=== PATIENT | female | born 1930 | race African-American/Black ===

== ENCOUNTER 2018-06-05 19:09 | Inpatient (IN) | payer MEDICARE, MEDICAID ==
--- NOTE | 2018-06-05 19:32 | ED Physician Chart ---
ED Chief Complaint/HPI - Patient Information Date Seen:: 06/05/18 Time Seen:: 19:28 Chief Complaint:: AGITATION AND SLAPPING HERESELF History of Present Illness:: 87 YR OLD FEMALE FROM [facility] WITH HX OF CVA DEMENTIA HYPERCHOLESTEROLISM HTN ANXIETY UTI AND HEART DZ Allergies:: Allergies Allergy/AdvReac Type Severity Reaction Status Date / Time Sulfa (Sulfonamide Allergy Verified 06/05/18 19:21 Antibiotics) ED Review of Systems - Review of Systems General/Constitutional: No fever Skin: No skin lesions Head: No headache Eyes: No loss of vision Neck: No neck pain Cardio Vascular: No chest pain GI: No nausea G/U: No dysuria Musculoskeletal: No bone or joint pain Endocrine: No polyuria Psychiatric: Prior psych history Hematopoietic: No bruising Allergic/Immuno: No urticaria Neurological: No syncope ED Past Medical History - Past Medical History Past Medical History: HTN, CAD, CVA/TIA, Dyslipidemia, Dementia, Other (PSYCH DISORDER) ED Physical Exam - Physical Examination Head: Atraumatic Skin: Nl inspection ENMT: External ears, nose nl Respiratory: Nl effort/Exclusion Cardio Vascular: RRR GI: No organomegaly Other Extremities comments:: RT SIDED WEAKNESS ED Assessment - Assessment General Assessment: PSYCHOSIS AGITATION REPETITIVE SLAPPING OF FACE ED Septic Shock - . Is Septic Shock (SBP<90, OR Lactate>4 mmol\L) present?: No ED Reassessment (Disposition) - Reassessment Reassessment:: AGITATION PSYCHOSIS DEMENTIA - Diagnosis Diagnosis:: ABOVE - Patient Disposition Discharge/Transfer:: Acute Care w/in this hosp Admitted to:: Med/Surg Condition at Disposition:: Stable
[2018-06-05 20:04] LABS: ALBUMIN 3.5 gm/dL (3.7-5.3); ALKALINE PHOSPHATASE 55 U/L (34-104); ANION GAP 13.3 (7.0-16.0); BILIRUBIN,TOTAL 0.3 mg/dL (0.3-1.0); BUN - UREA NITROGEN 18 mg/dL (7-25); CARBON DIOXIDE 23.7 mEq/L (21.0-31.0); CHLORIDE 109 mEq/L (98-107); CREATININE - SERUM 0.7 mg/dL (0.6-1.2); GLUCOSE 99 mg/dL (70-105); SGOT 12 U/L (13-39); SGPT/ALT 6 U/L (7-52); SODIUM SERUM 142 mEq/L (136-145)
[2018-06-05 20:14] LABS: % EOSINOPHILS 1.2 % (0.0-5.0); % LYMPHOCYTES 21.3 % (20.0-50.0); % MONOCYTES 5.1 % (2.0-10.0); % NEUTROPHILS 72.4 % (40.0-80.0); EOSINOPHILE ABSOLUTE 0.2 Th/cmm (0.1-0.4); HEMATOCRIT 35.1 % (41.0-60); HEMOGLOBIN 11.7 gm/dL (12-16); LYMPHOCYTE ABSOLUTE 2.7 Th/cmm (1.5-3.0); MEAN CELL VOLUME 88.5 fl (81-100); MEAN CORPUSCULAR HEMOGLOBIN 29.4 pg (27.0-31.0); MEAN CORPUSCULAR HGB CONC 33.2 pg (28.0-36.0); MEAN PLATELET VOLUME 11.4 fl; MONOCYTE ABSOLUTE 0.7 Th/cmm (0.3-1.0); NEUTROPHILE ABSOLUTE 9.2 Th/cmm (1.8-8.0); PLATELET COUNT 222 Th/cmm (150-400); RED BLOOD COUNT 3.97 Mil/cmm (3.80-5.20); RED CELL DISTRIBUTION WIDTH 12.5 % (11.5-20.0); WHITE BLOOD COUNT 12.8 Th/cmm (4.8-10.8)
[2018-06-05 21:36] VITALS: BP 138/96
[2018-06-05] MEDS ORDERED: Maalox 30 mL Cup PO PRN (21:39)
[2018-06-05] MEDS ORDERED: Magnesium Hydroxide (MOM) 30 mL UDC PO PRN (21:39)
[2018-06-05 22:36] LABS: CHOLESTEROL 161 mg/dL (<200); HDL -HIGH DENSITY LIPOPROTEIN 61 mg/dL (23-92); TRIGLYCERIDES 67 mg/dL (<150)
[2018-06-06] MEDS ORDERED: Multivitamin Tab PO SCH (09:00)
[2018-06-06] MEDS ORDERED: Non-Formulary Item 1 EA (Cranberry Fruit Concentrate [Cranberry] 450 MG) PO SCH (09:00)
[2018-06-06] MEDS ORDERED: NUTRITIONAL SUPPLEMENT PO SCH (09:00)
[2018-06-06] MEDS: Multivitamin Tab PO SCH (09:24)
--- NOTE | 2018-06-06 13:00 | History & Physical ---
ADMIT DATE: 06/06/2018 CHIEF COMPLAINT: Agitated behavior. HISTORY OF PRESENT ILLNESS: This is an 87-year-old female with history of hypertension, hypercholesterolemia and psych disorder, admitted from nursing facility secondary to above complaints, under the service of Dr. Connor. The patient denies chest pain, shortness of breath. The patient is not a good historian. PAST MEDICAL HISTORY: As mentioned in the history of present illness. PAST SURGICAL HISTORY: Unable to obtain from the patient. ALLERGIES: SULFA. MEDICATIONS: The patient is on Tylenol, Norvasc, aspirin, atorvastatin, Dulcolax, Colace, Ativan, multivitamins. ____. FAMILY HISTORY: Noncontributory. SOCIAL HISTORY: The patient is a detention patient requiring 24-hour total care. REVIEW OF SYSTEMS: This is limited secondary to the patient's current mental state. We will try to obtain more detailed review of systems at a later date by talking to family members Carlos Bishop, who is the at [phone] with a [place] address. There is a daughter, Pippa Swartz at [phone]. We will also try to get information from nursing staff at [facility] [phone]. PHYSICAL EXAMINATION: VITAL SIGNS: Blood pressure 138/96, respiration 20, pulse 92, temperature 97.7. GENERAL: Elderly female, appear chronically ill. NECK: Supple. LUNGS: Equal breath sounds with few rhonchi. HEART: Regular rate and rhythm with systolic ejection murmur. ABDOMEN: Soft, globular. EXTREMITIES: Positive excoriation. NEUROLOGIC: Limited. The patient with contracture in the right upper extremity. LABORATORY DATA: WBC 12.8, hemoglobin 11, platelets 222,000. Sodium 142, potassium 4.0, BUN 84, creatinine 0.7, AST and ALT 12 and ____ respectively. ASSESSMENT AND PLAN: History of stroke with right-sided generalized weakness, hypertension, hypercholesterolemia and psych disorder, leukocytosis, anemia, low albumin. Continue the patient also on aspirin. We will titrate the patient's antihypertensive medication. Continue multivitamins. We will monitor for any signs of infection. We will continue to monitor the patient closely with you. JOB# [id number]
--- NOTE | 2018-06-07 04:26 | Psychiatric Evaluation ---
DATE OF SERVICE: 06/05/2018 PSYCHIATRIC EVALUATION AND MENTAL STATUS EXAMINATION IDENTIFYING DATA: The patient is an 87-year-old woman, resident of [facility]. JUSTIFICATION TO HOSPITALIZATION: The patient is admitted here on a voluntary basis in view of her acute agitation and self-abusive behavior. HISTORY OF PRESENT ILLNESS: This is the first psychiatric hospitalization to [facility] for this patient who has been slapping across her face and would not be contained. The patient has to be given an Ativan 1 mg to calm her down. The patient, at the time of the evaluation, has been laughing and giggling and displaying acute mood swings. The patient is not making much sense at this time. The patient is still very paranoid and is resorted to self-abusive behaviors and staff have to intervene to stop her. The patient is also reported to have multiple medical problems with history of right-sided weakness due to CVA, dementia, hypertension, anxiety, UTI, and hyperlipidemia. The patient is, at this time, not presenting with any threats to harm others, but is noted to be self-abusive. The patient is not able to take care of her ADLs, she is a total care patient. PAST PSYCHIATRIC HISTORY: Details are not known. MEDICAL HISTORY: Physical examination is requested to be done by Dr. Mejia. SUBSTANCE ABUSE HISTORY: None. PHYSICAL OR SEXUAL ABUSE HISTORY: None. LEGAL PROBLEMS: None at this time. MENTAL STATUS EXAMINATION: The patient is an 87-year-old woman, looking her stated age, superficially cooperative. Eye contact is poor. Mood is noted to be irritable. Affect is constricted. The patient's insight and judgment at this time are noted to be still impaired. Impulse control seems to be poor. Coping skills are also noted to be poor. The patient at one minute, she is laughing and not making any sense, the next minute she has been slapping her face. PLAN: Because of her age, the patient is going to be initially started with a low dose of lorazepam and the patient is going to be observed. If this behavior continues, the patient is going to be started on low dose of mood stabilizer. JOB# [id number]
[2018-06-07] MEDS: Multivitamin Tab PO SCH (09:52)
--- NOTE | 2018-06-07 12:27 | Internal Medicine Prog Note ---
Internal Medicine Subjective - Subjective Patient seen and examined:: with staff, chart reviewed Patient is:: asleep, eyes closed, arousable, in bed, confused Per staff patient has:: no adverse event, no episodes of fall, poor appetite, agitated Internal Medicine Objective - Results Result Diagrams: 06/05/18 19:45 06/05/18 19:45 Recent Labs: Laboratory Last Values WBC 12.8 Th/cmm (4.8-10.8) H 06/05/18 19:45 RBC 3.97 Mil/cmm (3.80-5.20) 06/05/18 19:45 Hgb 11.7 gm/dL (12-16) L 06/05/18 19:45 Hct 35.1 % (41.0-60) L 06/05/18 19:45 MCV 88.5 fl (81-100) 06/05/18 19:45 MCH 29.4 pg (27.0-31.0) 06/05/18 19:45 MCHC Differential 33.2 pg (28.0-36.0) 06/05/18 19:45 RDW 12.5 % (11.5-20.0) 06/05/18 19:45 Plt Count 222 Th/cmm (150-400) 06/05/18 19:45 MPV 11.4 fl 06/05/18 19:45 Neutrophils % 72.4 % (40.0-80.0) 06/05/18 19:45 Lymphocytes % 21.3 % (20.0-50.0) 06/05/18 19:45 Monocytes % 5.1 % (2.0-10.0) 06/05/18 19:45 Eosinophils % 1.2 % (0.0-5.0) 06/05/18 19:45 Basophils % 0.0 % (0.0-2.0) 06/05/18 19:45 Sodium 142 mEq/L (136-145) 06/05/18 19:45 Potassium 4.0 mEq/L (3.5-5.1) 06/05/18 19:45 Chloride 109 mEq/L (98-107) H 06/05/18 19:45 Carbon Dioxide 23.7 mEq/L (21.0-31.0) 06/05/18 19:45 Anion Gap 13.3 (7.0-16.0) 06/05/18 19:45 BUN 18 mg/dL (7-25) 06/05/18 19:45 Creatinine 0.7 mg/dL (0.6-1.2) 06/05/18 19:45 Est GFR ( Amer) TNP 06/05/18 19:45 Est GFR (Non-Af Amer) TNP 06/05/18 19:45 BUN/Creatinine Ratio 25.7 06/05/18 19:45 Glucose 99 mg/dL (70-105) 06/05/18 19:45 Calcium 9.0 mg/dL (8.6-10.3) 06/05/18 19:45 Total Bilirubin 0.3 mg/dL (0.3-1.0) 06/05/18 19:45 AST 12 U/L (13-39) L 06/05/18 19:45 ALT 6 U/L (7-52) L 06/05/18 19:45 Alkaline Phosphatase 55 U/L (34-104) 06/05/18 19:45 Total Protein 7.0 gm/dL (6.0-8.3) 06/05/18 19:45 Albumin 3.5 gm/dL (3.7-5.3) L 06/05/18 19:45 Globulin 3.5 gm/dL 06/05/18 19:45 Albumin/Globulin Ratio 1.0 (1.0-1.8) 06/05/18 19:45 Triglycerides 67 mg/dL (<150) 06/05/18 19:35 Cholesterol 161 mg/dL (<200) 06/05/18 19:35 LDL Cholesterol Direct 80 mg/dL (75-193) 06/05/18 19:35 HDL Cholesterol 61 mg/dL (23-92) 06/05/18 19:35 - Physical Exam Vitals and I&O: Vital Signs Temp 98.3 F 06/06/18 20:18 Pulse 90 06/07/18 09:50 Resp 18 06/06/18 20:18 BP 115/73 06/07/18 09:50 Pulse Ox 96 06/06/18 20:18 Intake & Output 06/06/18 06/07/18 06/07/18 18:59 06:59 18:59 Intake Total 120 Balance 120 Intake: Oral 120 Other: # Voids 2 # Bowel Movements 0 Active Medications: Current Medications Acetaminophen (Tylenol) 325 mg PO Q6HR PRN PRN Reason: Pain or Fever >101 Stop: 08/04/18 21:43 Al Hydrox/Mg Hydrox/Simethicone (Maalox) 30 ml PO Q4HR PRN PRN Reason: GI DISTRESS Stop: 08/04/18 21:38 Amlodipine Besylate (Norvasc) 5 mg PO DAILY TOÑITO Stop: 08/05/18 08:59 Last Admin: 06/07/18 09:50 Dose: 5 mg Aspirin (Ecotrin) 81 mg PO DAILY TOÑITO Stop: 08/05/18 08:59 Last Admin: 06/07/18 09:51 Dose: 81 mg Atorvastatin Calcium (Lipitor) 40 mg PO HS [facility] Stop: 08/04/18 22:59 Last Admin: 06/06/18 20:45 Dose: 40 mg Bisacodyl (Dulcolax 10 Mg Supp) 10 mg RC DAILY PRN PRN Reason: Constipation Stop: 08/04/18 21:43 Docusate Sodium (Colace) 100 mg PO BID [facility] Stop: 08/05/18 08:59 Last Admin: 06/07/18 09:51 Dose: Not Given Lorazepam (Ativan) 0.5 mg PO Q6HR PRN; Protocol PRN Reason: Anxiety Stop: 08/04/18 21:43 Magnesium Hydroxide (Milk Of Magnesia) 30 ml PO HS PRN PRN Reason: Constipation Multivitamins/Vitamin C (Theragran) 1 tab PO DAILY TOÑITO Stop: 08/05/18 08:59 Last Admin: 06/07/18 09:52 Dose: 1 tab Zolpidem Tartrate (Ambien) 5 mg PO HS PRN PRN Reason: Insomnia Stop: 08/04/18 21:38 Last Admin: 06/06/18 20:46 Dose: 5 mg General: weak HEENT: NC/AT, PERRLA, EOMI Neck: Supple, No JVD Lungs: rales Cardiovascular: RRR, Normal S1, Normal S2, with murmur Abdomen: soft, non-tender, non-distended, positive bowel sound Extremities: excoriation, contracture Neurological: no change Internal Medicine Assmt/Plan - Assessment Assessment: ASSESSMENT : History of stroke with right-sided generalized weakness, hypertension, hypercholesterolemia and psych disorder, leukocytosis, anemia, low albumin. - Plan Plan: PLAN: Continue the patient also on aspirin. We will titrate the patient's antihypertensive medication. Continue multivitamins. We will monitor for any signs of infection. We will continue to monitor the patient closely with you.
--- NOTE | 2018-06-08 04:42 | Consultation ---
DATE OF CONSULTATION: 06/07/2018 REFERRING PHYSICIAN: Pratik Clemons M.D. TYPE OF CONSULTATION: Psychology. HISTORY OF PRESENT ILLNESS: The patient is an 87-year-old female. The patient is a resident of [facility]. The patient is being admitted due to acute agitation and self-abusive behavior. The following is by review of the medical record and by the patient's self- report. The staff at the patient's facility report that the patient was displaying acute mood swings. This included laughing inappropriately and then resorting to self-abusive behaviors which was the patient slapping herself in her face. Staff was unable to intervene and to deescalate her, therefore, the patient was referred here due to her decompensation and for stabilization. The staff also reports that the patient is a total care patient. The patient did not answer the question about experiencing suicidal ideation, plan, or intention. PAST MEDICAL HISTORY: Please see history and physical by Dr. Mejia. PAST PSYCHIATRIC HISTORY: Records are unavailable. Details are unknown. SUBSTANCE ABUSE HISTORY: The patient denied any history of alcohol, tobacco, or illicit drug use. PSYCHOSOCIAL HISTORY: The patient did not answer questions about educational or occupational history. The patient states that she is and that she has a daughter named Pippa and her 's name is Carlos who resides in [place]. The patient states that her daughter is involved in her care and that she is estranged from her . The patient did not endorse any specific christianity affiliation. The patient denied any history of physical or sexual abuse. She did not know if there were any current legal problems. MENTAL STATUS EXAMINATION: The patient appears to be older than her stated age. The patient's attitude is superficially cooperative. Eye contact is poor. Speech is slow, delayed, rambling and difficult to comprehend. Mood is irritable. Affect is constricted. Thought process shows to be confused. The patient is not making much sense. There are apparent mood fluctuations which include laughing inappropriately to appearing to be sullen and irritated. The patient did not answer questions about experiencing auditory or visual hallucinations or delusions. The patient did not answer the inquiry about having any suicidal ideation, plan or intention. The patient's behavior includes repeated attempts to slap herself in her face. This also occurred during the initial interview. Impulse control is impaired. Concentration is poor. Sensorium is alert and oriented to self only. The patient did not participate in the memory assessment. She did not participate in the interpretation of proverbs. The patient was unable to verbally contract for safety. Insight is impaired. Judgment is impaired. DIAGNOSTIC IMPRESSION: AXIS I: 1. Provisional diagnosis of dementia due to other medical condition by history. 2. Impulse control disorder, not otherwise specified. 3. Provisional diagnosis of psychotic disorder, not otherwise specified. 4. Provisional diagnosis of anxiety disorder, not otherwise specified. AXIS II: Deferred. AXIS III: Per Dr. Mejia. TREATMENT PLAN: The patient has been seen by Dr. Clemons for psychiatric evaluation and for the management of the patient's psychotropic medications. Records indicate the patient may be given Ativan to help calm her. We will provide de-escalation as well as limit setting. We will provide cognitive redirection including thought-stopping to prevent self abusive behavior. We will provide stress management for the patient to increase her frustration tolerance. We will provide a simple anxiety reduction skill. We will provide motivational enhancement for the patient to become compliant and stay compliant with all aspects of her care and treatment and to assist the patient in being able to follow through with staff direction. We will encourage the patient to verbally contract for safety including no self-harm. We will provide coping strategies for phase of life issues. A possible Neurology consult may be considered. We will followup with Behavioral therapy and supportive psychotherapy during the patient's hospital stay and course of treatment. Thank you, Dr. Clemons, for this consult and the opportunity to participate in this patient's care. JOB# [id number] [place]
--- NOTE | 2018-06-08 05:38 | Progress Notes ---
DATE: 06/07/2018 PSYCHIATRIC PROGRESS NOTE SUBJECTIVE: Staff was spoken to. The patient is interviewed. Mood is noted to be dysphoric. The patient's coping skills are noted to be very poor. The patient is laughing and giggling at times and is not making much of any sense. The patient has been currently on lorazepam on an as needed basis. The patient is gravely disabled and short and long-term memory are not be a major concern. The patient is being closely monitored for and has been provided with the supportive therapy. The patient is encouraged to verbalize the concerns. ASSESSMENT: The patient is still demented and getting paranoid. PLAN: To consider low dose of the Seroquel and the patient's family is going to be informed before the antipsychotic medication is going to be started. JOB# [id number]
[2018-06-08] MEDS: Multivitamin Tab PO SCH (09:16)
--- NOTE | 2018-06-08 12:00 | Internal Medicine Prog Note ---
Internal Medicine Subjective - Subjective Patient seen and examined:: with staff, chart reviewed Patient is:: asleep, eyes closed, arousable, in bed, confused Per staff patient has:: no adverse event, no episodes of fall, poor appetite, agitated Internal Medicine Objective - Results Result Diagrams: 06/05/18 19:45 06/05/18 19:45 Recent Labs: Laboratory Last Values WBC 12.8 Th/cmm (4.8-10.8) H 06/05/18 19:45 RBC 3.97 Mil/cmm (3.80-5.20) 06/05/18 19:45 Hgb 11.7 gm/dL (12-16) L 06/05/18 19:45 Hct 35.1 % (41.0-60) L 06/05/18 19:45 MCV 88.5 fl (81-100) 06/05/18 19:45 MCH 29.4 pg (27.0-31.0) 06/05/18 19:45 MCHC Differential 33.2 pg (28.0-36.0) 06/05/18 19:45 RDW 12.5 % (11.5-20.0) 06/05/18 19:45 Plt Count 222 Th/cmm (150-400) 06/05/18 19:45 MPV 11.4 fl 06/05/18 19:45 Neutrophils % 72.4 % (40.0-80.0) 06/05/18 19:45 Lymphocytes % 21.3 % (20.0-50.0) 06/05/18 19:45 Monocytes % 5.1 % (2.0-10.0) 06/05/18 19:45 Eosinophils % 1.2 % (0.0-5.0) 06/05/18 19:45 Basophils % 0.0 % (0.0-2.0) 06/05/18 19:45 Sodium 142 mEq/L (136-145) 06/05/18 19:45 Potassium 4.0 mEq/L (3.5-5.1) 06/05/18 19:45 Chloride 109 mEq/L (98-107) H 06/05/18 19:45 Carbon Dioxide 23.7 mEq/L (21.0-31.0) 06/05/18 19:45 Anion Gap 13.3 (7.0-16.0) 06/05/18 19:45 BUN 18 mg/dL (7-25) 06/05/18 19:45 Creatinine 0.7 mg/dL (0.6-1.2) 06/05/18 19:45 Est GFR ( Amer) TNP 06/05/18 19:45 Est GFR (Non-Af Amer) TNP 06/05/18 19:45 BUN/Creatinine Ratio 25.7 06/05/18 19:45 Glucose 99 mg/dL (70-105) 06/05/18 19:45 Calcium 9.0 mg/dL (8.6-10.3) 06/05/18 19:45 Total Bilirubin 0.3 mg/dL (0.3-1.0) 06/05/18 19:45 AST 12 U/L (13-39) L 06/05/18 19:45 ALT 6 U/L (7-52) L 06/05/18 19:45 Alkaline Phosphatase 55 U/L (34-104) 06/05/18 19:45 Total Protein 7.0 gm/dL (6.0-8.3) 06/05/18 19:45 Albumin 3.5 gm/dL (3.7-5.3) L 06/05/18 19:45 Globulin 3.5 gm/dL 06/05/18 19:45 Albumin/Globulin Ratio 1.0 (1.0-1.8) 06/05/18 19:45 Triglycerides 67 mg/dL (<150) 06/05/18 19:35 Cholesterol 161 mg/dL (<200) 06/05/18 19:35 LDL Cholesterol Direct 80 mg/dL (75-193) 06/05/18 19:35 HDL Cholesterol 61 mg/dL (23-92) 06/05/18 19:35 - Physical Exam Vitals and I&O: Vital Signs Temp 97.4 F 06/08/18 06:22 Pulse 76 06/08/18 09:16 Resp 18 06/08/18 08:00 BP 130/76 06/08/18 09:16 Pulse Ox 97 06/08/18 06:22 Intake & Output 06/07/18 06/08/18 06/08/18 18:59 06:59 18:59 Intake Total 120 Balance 120 Intake: Oral 120 Other: # Voids 3 Active Medications: Current Medications Acetaminophen (Tylenol) 325 mg PO Q6HR PRN PRN Reason: Pain or Fever >101 Stop: 08/04/18 21:43 Al Hydrox/Mg Hydrox/Simethicone (Maalox) 30 ml PO Q4HR PRN PRN Reason: GI DISTRESS Stop: 08/04/18 21:38 Amlodipine Besylate (Norvasc) 5 mg PO DAILY [facility] Stop: 08/05/18 08:59 Last Admin: 06/08/18 09:16 Dose: 5 mg Aspirin (Ecotrin) 81 mg PO DAILY [facility] Stop: 08/05/18 08:59 Last Admin: 06/08/18 09:16 Dose: 81 mg Atorvastatin Calcium (Lipitor) 40 mg PO HS [facility] Stop: 08/04/18 22:59 Last Admin: 06/07/18 20:58 Dose: Not Given Bisacodyl (Dulcolax 10 Mg Supp) 10 mg RC DAILY PRN PRN Reason: Constipation Stop: 08/04/18 21:43 Docusate Sodium (Colace) 100 mg PO BID [facility] Stop: 08/05/18 08:59 Last Admin: 06/08/18 09:16 Dose: 100 mg Lorazepam (Ativan) 0.5 mg PO Q6HR PRN; Protocol PRN Reason: Anxiety Stop: 08/04/18 21:43 Magnesium Hydroxide (Milk Of Magnesia) 30 ml PO HS PRN PRN Reason: Constipation Multivitamins/Vitamin C (Theragran) 1 tab PO DAILY [facility] Stop: 08/05/18 08:59 Last Admin: 06/08/18 09:16 Dose: 1 tab Zolpidem Tartrate (Ambien) 5 mg PO HS PRN PRN Reason: Insomnia Stop: 08/04/18 21:38 Last Admin: 06/06/18 20:46 Dose: 5 mg General: weak HEENT: NC/AT, PERRLA, EOMI Neck: Supple, No JVD Lungs: rales Cardiovascular: RRR, Normal S1, Normal S2, with murmur Abdomen: soft, non-tender, non-distended, positive bowel sound Extremities: excoriation, contracture Neurological: no change Internal Medicine Assmt/Plan - Assessment Assessment: ASSESSMENT : History of stroke with right-sided generalized weakness, hypertension, hypercholesterolemia and psych disorder, leukocytosis, anemia, low albumin. - Plan Plan: PLAN: Continue the patient also on aspirin. We will titrate the patient's antihypertensive medication. Continue multivitamins. We will monitor for any signs of infection. We will continue to monitor the patient closely with you.
--- NOTE | 2018-06-09 01:42 | Progress Notes ---
DATE: 06/08/2018 PSYCHIATRIC PROGRESS NOTE SUBJECTIVE: Staff was spoken to. The patient is interviewed. Mood is noted to be irritable. Affect is constricted. The patient's insight and judgment are noted to be still impaired. The patient is self-abusive. The patient is demented. Coping skills at this time are noted to be extremely poor. ASSESSMENT: The patient is still paranoid and has been self-abusive. PLAN: To continue the patient with the current medication and encouraged the patient to verbalize the concerns rather than to act out. [facility]# [id number]
[2018-06-09] MEDS: Multivitamin Tab PO SCH (08:51)
--- NOTE | 2018-06-09 12:40 | Internal Medicine Prog Note ---
Internal Medicine Subjective - Subjective Patient seen and examined:: with staff, chart reviewed Patient is:: asleep, eyes closed, arousable, in bed, confused Per staff patient has:: no adverse event, no episodes of fall, poor appetite, agitated Internal Medicine Objective - Results Result Diagrams: 06/05/18 19:45 06/05/18 19:45 Recent Labs: Laboratory Last Values WBC 12.8 Th/cmm (4.8-10.8) H 06/05/18 19:45 RBC 3.97 Mil/cmm (3.80-5.20) 06/05/18 19:45 Hgb 11.7 gm/dL (12-16) L 06/05/18 19:45 Hct 35.1 % (41.0-60) L 06/05/18 19:45 MCV 88.5 fl (81-100) 06/05/18 19:45 MCH 29.4 pg (27.0-31.0) 06/05/18 19:45 MCHC Differential 33.2 pg (28.0-36.0) 06/05/18 19:45 RDW 12.5 % (11.5-20.0) 06/05/18 19:45 Plt Count 222 Th/cmm (150-400) 06/05/18 19:45 MPV 11.4 fl 06/05/18 19:45 Neutrophils % 72.4 % (40.0-80.0) 06/05/18 19:45 Lymphocytes % 21.3 % (20.0-50.0) 06/05/18 19:45 Monocytes % 5.1 % (2.0-10.0) 06/05/18 19:45 Eosinophils % 1.2 % (0.0-5.0) 06/05/18 19:45 Basophils % 0.0 % (0.0-2.0) 06/05/18 19:45 Sodium 142 mEq/L (136-145) 06/05/18 19:45 Potassium 4.0 mEq/L (3.5-5.1) 06/05/18 19:45 Chloride 109 mEq/L (98-107) H 06/05/18 19:45 Carbon Dioxide 23.7 mEq/L (21.0-31.0) 06/05/18 19:45 Anion Gap 13.3 (7.0-16.0) 06/05/18 19:45 BUN 18 mg/dL (7-25) 06/05/18 19:45 Creatinine 0.7 mg/dL (0.6-1.2) 06/05/18 19:45 Est GFR ( Amer) TNP 06/05/18 19:45 Est GFR (Non-Af Amer) TNP 06/05/18 19:45 BUN/Creatinine Ratio 25.7 06/05/18 19:45 Glucose 99 mg/dL (70-105) 06/05/18 19:45 Calcium 9.0 mg/dL (8.6-10.3) 06/05/18 19:45 Total Bilirubin 0.3 mg/dL (0.3-1.0) 06/05/18 19:45 AST 12 U/L (13-39) L 06/05/18 19:45 ALT 6 U/L (7-52) L 06/05/18 19:45 Alkaline Phosphatase 55 U/L (34-104) 06/05/18 19:45 Total Protein 7.0 gm/dL (6.0-8.3) 06/05/18 19:45 Albumin 3.5 gm/dL (3.7-5.3) L 06/05/18 19:45 Globulin 3.5 gm/dL 06/05/18 19:45 Albumin/Globulin Ratio 1.0 (1.0-1.8) 06/05/18 19:45 Triglycerides 67 mg/dL (<150) 06/05/18 19:35 Cholesterol 161 mg/dL (<200) 06/05/18 19:35 LDL Cholesterol Direct 80 mg/dL (75-193) 06/05/18 19:35 HDL Cholesterol 61 mg/dL (23-92) 06/05/18 19:35 - Physical Exam Vitals and I&O: Vital Signs Temp 97.4 F 06/09/18 06:48 Pulse 84 06/09/18 06:48 Resp 19 06/09/18 06:48 BP 128/69 06/09/18 06:48 Pulse Ox 94 06/09/18 06:48 Intake & Output 06/08/18 06/09/18 06/09/18 18:59 06:59 18:59 Intake Total 960 120 Output Total 1 Balance 960 119 Intake: Oral 960 120 Output: Urine/Stool Mix 1 Other: # Voids 2 1 # Bowel Movements 0 Active Medications: Current Medications Acetaminophen (Tylenol) 325 mg PO Q6HR PRN PRN Reason: Pain or Fever >101 Stop: 08/04/18 21:43 Al Hydrox/Mg Hydrox/Simethicone (Maalox) 30 ml PO Q4HR PRN PRN Reason: GI DISTRESS Stop: 08/04/18 21:38 Amlodipine Besylate (Norvasc) 5 mg PO DAILY [facility] Stop: 08/05/18 08:59 Last Admin: 06/09/18 08:51 Dose: Not Given Aspirin (Ecotrin) 81 mg PO DAILY [facility] Stop: 08/05/18 08:59 Last Admin: 06/09/18 08:51 Dose: 81 mg Atorvastatin Calcium (Lipitor) 40 mg PO HS [facility] Stop: 08/04/18 22:59 Last Admin: 06/08/18 21:17 Dose: 40 mg Bisacodyl (Dulcolax 10 Mg Supp) 10 mg RC DAILY PRN PRN Reason: Constipation Stop: 08/04/18 21:43 Docusate Sodium (Colace) 100 mg PO BID [facility] Stop: 08/05/18 08:59 Last Admin: 06/09/18 08:50 Dose: 100 mg Lorazepam (Ativan) 0.5 mg PO Q6HR PRN; Protocol PRN Reason: Anxiety Stop: 08/04/18 21:43 Magnesium Hydroxide (Milk Of Magnesia) 30 ml PO HS PRN PRN Reason: Constipation Multivitamins/Vitamin C (Theragran) 1 tab PO DAILY [facility] Stop: 08/05/18 08:59 Last Admin: 06/09/18 08:51 Dose: 1 tab Zolpidem Tartrate (Ambien) 5 mg PO HS PRN PRN Reason: Insomnia Stop: 08/04/18 21:38 Last Admin: 06/08/18 21:16 Dose: 5 mg General: weak HEENT: NC/AT, PERRLA, EOMI Neck: Supple, No JVD Lungs: rales Cardiovascular: RRR, Normal S1, Normal S2, with murmur Abdomen: soft, non-tender, non-distended, positive bowel sound Extremities: excoriation, contracture Neurological: no change Internal Medicine Assmt/Plan - Assessment Assessment: ASSESSMENT : History of stroke with right-sided generalized weakness, hypertension, hypercholesterolemia and psych disorder, leukocytosis, anemia, low albumin. - Plan Plan: PLAN: Continue the patient also on aspirin. We will titrate the patient's antihypertensive medication. Continue multivitamins. We will monitor for any signs of infection. We will continue to monitor the patient closely with you.
--- NOTE | 2018-06-10 00:52 | Progress Notes ---
DATE: 06/09/2018 PSYCHOLOGY PROGRESS NOTE SUBJECTIVE: The patient is seen and is interviewed. Case is discussed with staff. The patient presents as guarded and suspicious as well as irritated. The patient's coping skills are poor. Insight and judgment continue to be poor. Staff reports the patient continues to be self abusive by slapping herself in the face. There is evidence of continued paranoid ideation. OBJECTIVE: Mood is irritable. Affect is constricted. Thought process shows to be confused and concrete with poor cognitive redirection. The patient did not answer questions about experiencing auditory hallucinations or delusions. The patient's behavior is still self abusive with poor response to behavioral intervention. ASSESSMENT AND PLAN: The patient's paranoid ideation persist as well as her self abusive behavior. We provided limit setting and de-escalation. We provided cognitive behavioral redirection. The patient did not respond to the psychotherapeutic intervention of thought stopping with behavioral redirection. The patient is taking her p.o. medications. We provided remotivation for the patient to become compliant with her care and treatment. We provided reality orientation, differentiation and integration. We encouraged the patient to demonstrate self-regulation and verbalize her concerns versus acting out. We will follow up in 2 days to continue the present psychotherapeutic and behavioral management approach for treatment. Prognosis is poor. JOB# [id number] MORENA
[2018-06-10] MEDS: Multivitamin Tab PO SCH (10:11)
--- NOTE | 2018-06-10 12:31 | Internal Medicine Prog Note ---
Internal Medicine Subjective - Subjective Patient seen and examined:: with staff, chart reviewed Patient is:: asleep, eyes closed, arousable, in bed, confused Per staff patient has:: no adverse event, no episodes of fall, poor appetite, agitated Internal Medicine Objective - Results Result Diagrams: 06/05/18 19:45 06/05/18 19:45 Recent Labs: Laboratory Last Values WBC 12.8 Th/cmm (4.8-10.8) H 06/05/18 19:45 RBC 3.97 Mil/cmm (3.80-5.20) 06/05/18 19:45 Hgb 11.7 gm/dL (12-16) L 06/05/18 19:45 Hct 35.1 % (41.0-60) L 06/05/18 19:45 MCV 88.5 fl (81-100) 06/05/18 19:45 MCH 29.4 pg (27.0-31.0) 06/05/18 19:45 MCHC Differential 33.2 pg (28.0-36.0) 06/05/18 19:45 RDW 12.5 % (11.5-20.0) 06/05/18 19:45 Plt Count 222 Th/cmm (150-400) 06/05/18 19:45 MPV 11.4 fl 06/05/18 19:45 Neutrophils % 72.4 % (40.0-80.0) 06/05/18 19:45 Lymphocytes % 21.3 % (20.0-50.0) 06/05/18 19:45 Monocytes % 5.1 % (2.0-10.0) 06/05/18 19:45 Eosinophils % 1.2 % (0.0-5.0) 06/05/18 19:45 Basophils % 0.0 % (0.0-2.0) 06/05/18 19:45 Sodium 142 mEq/L (136-145) 06/05/18 19:45 Potassium 4.0 mEq/L (3.5-5.1) 06/05/18 19:45 Chloride 109 mEq/L (98-107) H 06/05/18 19:45 Carbon Dioxide 23.7 mEq/L (21.0-31.0) 06/05/18 19:45 Anion Gap 13.3 (7.0-16.0) 06/05/18 19:45 BUN 18 mg/dL (7-25) 06/05/18 19:45 Creatinine 0.7 mg/dL (0.6-1.2) 06/05/18 19:45 Est GFR ( Amer) TNP 06/05/18 19:45 Est GFR (Non-Af Amer) TNP 06/05/18 19:45 BUN/Creatinine Ratio 25.7 06/05/18 19:45 Glucose 99 mg/dL (70-105) 06/05/18 19:45 Calcium 9.0 mg/dL (8.6-10.3) 06/05/18 19:45 Total Bilirubin 0.3 mg/dL (0.3-1.0) 06/05/18 19:45 AST 12 U/L (13-39) L 06/05/18 19:45 ALT 6 U/L (7-52) L 06/05/18 19:45 Alkaline Phosphatase 55 U/L (34-104) 06/05/18 19:45 Total Protein 7.0 gm/dL (6.0-8.3) 06/05/18 19:45 Albumin 3.5 gm/dL (3.7-5.3) L 06/05/18 19:45 Globulin 3.5 gm/dL 06/05/18 19:45 Albumin/Globulin Ratio 1.0 (1.0-1.8) 06/05/18 19:45 Triglycerides 67 mg/dL (<150) 06/05/18 19:35 Cholesterol 161 mg/dL (<200) 06/05/18 19:35 LDL Cholesterol Direct 80 mg/dL (75-193) 06/05/18 19:35 HDL Cholesterol 61 mg/dL (23-92) 06/05/18 19:35 - Physical Exam Vitals and I&O: Vital Signs Temp 98.3 F 06/09/18 20:29 Pulse 84 06/10/18 10:11 Resp 18 06/10/18 08:00 BP 123/67 06/10/18 10:11 Pulse Ox 95 06/09/18 20:29 Intake & Output 06/09/18 06/10/18 06/10/18 18:59 06:59 18:59 Intake Total 240 240 Balance 240 240 Intake: Oral 240 240 Other: # Voids 2 2 # Bowel Movements 0 Active Medications: Current Medications Acetaminophen (Tylenol) 325 mg PO Q6HR PRN PRN Reason: Pain or Fever >101 Stop: 08/04/18 21:43 Al Hydrox/Mg Hydrox/Simethicone (Maalox) 30 ml PO Q4HR PRN PRN Reason: GI DISTRESS Stop: 08/04/18 21:38 Amlodipine Besylate (Norvasc) 5 mg PO DAILY [facility] Stop: 08/05/18 08:59 Last Admin: 06/10/18 10:11 Dose: 5 mg Aspirin (Ecotrin) 81 mg PO DAILY [facility] Stop: 08/05/18 08:59 Last Admin: 06/10/18 10:13 Dose: 81 mg Atorvastatin Calcium (Lipitor) 40 mg PO HS [facility] Stop: 08/04/18 22:59 Last Admin: 06/09/18 20:44 Dose: 40 mg Bisacodyl (Dulcolax 10 Mg Supp) 10 mg RC DAILY PRN PRN Reason: Constipation Stop: 08/04/18 21:43 Docusate Sodium (Colace) 100 mg PO BID [facility] Stop: 08/05/18 08:59 Last Admin: 06/10/18 10:13 Dose: 100 mg Lorazepam (Ativan) 0.5 mg PO Q6HR PRN; Protocol PRN Reason: Anxiety Stop: 08/04/18 21:43 Last Admin: 06/10/18 10:12 Dose: 0.5 mg Magnesium Hydroxide (Milk Of Magnesia) 30 ml PO HS PRN PRN Reason: Constipation Mirtazapine (Remeron) 7.5 mg PO HS [facility]; Protocol Stop: 08/08/18 20:59 Last Admin: 06/09/18 20:45 Dose: 7.5 mg Multivitamins/Vitamin C (Theragran) 1 tab PO DAILY [facility] Stop: 08/05/18 08:59 Last Admin: 06/10/18 10:11 Dose: 1 tab Zolpidem Tartrate (Ambien) 5 mg PO HS PRN PRN Reason: Insomnia Stop: 08/04/18 21:38 Last Admin: 06/09/18 20:44 Dose: 5 mg General: weak HEENT: NC/AT, PERRLA, EOMI Neck: Supple, No JVD Lungs: rales Cardiovascular: RRR, Normal S1, Normal S2, with murmur Abdomen: soft, non-tender, non-distended, positive bowel sound Extremities: excoriation, contracture Neurological: no change Internal Medicine Assmt/Plan - Assessment Assessment: ASSESSMENT : History of stroke with right-sided generalized weakness, hypertension, hypercholesterolemia and psych disorder, leukocytosis, anemia, low albumin. - Plan Plan: PLAN: Continue the patient also on aspirin. We will titrate the patient's antihypertensive medication. Continue multivitamins. We will monitor for any signs of infection. We will continue to monitor the patient closely with you. Nutritional Asmnt/Malnutr-PDOC - Dietary Evaluation Malnutrition Findings (Please click <Entered> for more info): Nutritional Asmnt/Malnutrition Start: 06/10/18 09: 26 Text: Status: Complete Freq: Protocol: Document 06/10/18 09:27 MIRANDA (Rec: 06/10/18 09:31 MIRANDA PHILIPPE- [email or web address]) Nutritional Asmnt/Malnutrition Patient General Information Diagnosis Psychosis nos Pertinent Medical Hx/Surgical Hx HTN, hypercholesterolemia, psych d/o Subjective Information Pt asleep at time of visit and did not wake to RD greeting Current Diet Order/ Nutrition Support Mechanical soft Pertinent Medications maalox, lipitor, bisacodyl, colace, MOM, remeron, theragran Pertinent Labs 06/05: Na 142, K 4.0, Cl 109, CO2 23.7, BUN 18, Cr 0.7, glucose 99 Nutritional Hx/Data Height 1.63 m Height (Calculated Centimeters) 162.6 Current Weight (lbs) 47.627 kg Weight (Calculated Kilograms) 47.6 Weight (Calculated Grams) 32606.2 Body Mass Index (BMI) 18.0 Weight Status Underweight GI Symptoms GI Symptoms None Last BM none noted Cultural/Ethnic/Alevism Belief unknown Usual diet at home mechanical soft Skin Integrity/Comment: corina score 13 Current %PO Poor (25-49%) Estimated Nutritional Goals BEE in Kcals: Using Current wt Calories/Kcals/Kg 25+kcals/kg Kcals Calculated 1200kcals/day Protein: Using Current wt Protein g/kg: ~1g/kg Protein Calculated ~48g/day Fluid: ml 1200ml/day (1ml/kcal) Nutritional Problem 1. Problem Problem No nutrition diagnosis at this time Intervention/Recommendation Comments Recommend continuing Regular mechanical soft diet Expected Outcomes/Goals Expected Outcomes/Goals Maintain current weight
--- NOTE | 2018-06-10 15:28 | Progress Notes ---
DATE: 06/09/2018 SUBJECTIVE: Staff was spoken to. The patient is interviewed. Mood is noted to be irritable. Affect is constricted. Insight and judgment are noted to be still impaired. Impulse control noted to be poor. Coping skills are also noted to be very poor. The patient has been very irritable and has been refusing to comply with the treatment and appetite is noted to be very poor. The patient is also reported to have been having problem with the sleep. In view of this one, it is decided to add a low dose of the Remeron which is 7.5 mg and follow the patient up. ASSESSMENT: The patient is still confused and depressed. PLAN: To continue the patient with the supportive therapy and encouraged the patient verbalize the concerns rather than to act out. JOB# [id number]
--- NOTE | 2018-06-11 06:05 | Progress Notes ---
DATE: 06/10/2018 PSYCHIATRIC PROGRESS NOTE SUBJECTIVE: Staff was spoken to. The patient is interviewed. Mood is noted to be depressed. Affect is constricted. The patient is isolative and withdrawn. Insight and judgment are noted to still impaired. Impulse control seems to be fair. No side effects to the medications are noted. The patient has been closely monitored on the unit. WBC is noted to be coming high, but MRSA is noted to be negative. The patient is being encouraged to have fluids liberally. ASSESSMENT: The patient is still depressed. PLAN: To continue the patient with the supportive therapy. I encouraged the patient to verbalize the concerns. The patient is currently on 7.5 mg of mirtazapine for her depression. Plan to continue the patient and then follow. [facility]# [id number]
[2018-06-11] MEDS: Multivitamin Tab PO SCH (09:54)
--- NOTE | 2018-06-11 11:53 | Internal Medicine Prog Note ---
Internal Medicine Subjective - Subjective Patient seen and examined:: with staff, chart reviewed Patient is:: asleep, eyes closed, arousable, in bed, confused Per staff patient has:: no adverse event, no episodes of fall, poor appetite, agitated Internal Medicine Objective - Results Result Diagrams: 06/05/18 19:45 06/05/18 19:45 Recent Labs: Laboratory Last Values WBC 12.8 Th/cmm (4.8-10.8) H 06/05/18 19:45 RBC 3.97 Mil/cmm (3.80-5.20) 06/05/18 19:45 Hgb 11.7 gm/dL (12-16) L 06/05/18 19:45 Hct 35.1 % (41.0-60) L 06/05/18 19:45 MCV 88.5 fl (81-100) 06/05/18 19:45 MCH 29.4 pg (27.0-31.0) 06/05/18 19:45 MCHC Differential 33.2 pg (28.0-36.0) 06/05/18 19:45 RDW 12.5 % (11.5-20.0) 06/05/18 19:45 Plt Count 222 Th/cmm (150-400) 06/05/18 19:45 MPV 11.4 fl 06/05/18 19:45 Neutrophils % 72.4 % (40.0-80.0) 06/05/18 19:45 Lymphocytes % 21.3 % (20.0-50.0) 06/05/18 19:45 Monocytes % 5.1 % (2.0-10.0) 06/05/18 19:45 Eosinophils % 1.2 % (0.0-5.0) 06/05/18 19:45 Basophils % 0.0 % (0.0-2.0) 06/05/18 19:45 Sodium 142 mEq/L (136-145) 06/05/18 19:45 Potassium 4.0 mEq/L (3.5-5.1) 06/05/18 19:45 Chloride 109 mEq/L (98-107) H 06/05/18 19:45 Carbon Dioxide 23.7 mEq/L (21.0-31.0) 06/05/18 19:45 Anion Gap 13.3 (7.0-16.0) 06/05/18 19:45 BUN 18 mg/dL (7-25) 06/05/18 19:45 Creatinine 0.7 mg/dL (0.6-1.2) 06/05/18 19:45 Est GFR ( Amer) TNP 06/05/18 19:45 Est GFR (Non-Af Amer) TNP 06/05/18 19:45 BUN/Creatinine Ratio 25.7 06/05/18 19:45 Glucose 99 mg/dL (70-105) 06/05/18 19:45 Calcium 9.0 mg/dL (8.6-10.3) 06/05/18 19:45 Total Bilirubin 0.3 mg/dL (0.3-1.0) 06/05/18 19:45 AST 12 U/L (13-39) L 06/05/18 19:45 ALT 6 U/L (7-52) L 06/05/18 19:45 Alkaline Phosphatase 55 U/L (34-104) 06/05/18 19:45 Total Protein 7.0 gm/dL (6.0-8.3) 06/05/18 19:45 Albumin 3.5 gm/dL (3.7-5.3) L 06/05/18 19:45 Globulin 3.5 gm/dL 06/05/18 19:45 Albumin/Globulin Ratio 1.0 (1.0-1.8) 06/05/18 19:45 Triglycerides 67 mg/dL (<150) 06/05/18 19:35 Cholesterol 161 mg/dL (<200) 06/05/18 19:35 LDL Cholesterol Direct 80 mg/dL (75-193) 06/05/18 19:35 HDL Cholesterol 61 mg/dL (23-92) 06/05/18 19:35 - Physical Exam Vitals and I&O: Vital Signs Temp 97.6 F 06/11/18 06:17 Pulse 121 06/11/18 09:53 Resp 18 06/11/18 06:17 BP 163/79 06/11/18 09:53 Pulse Ox 97 06/11/18 06:17 Intake & Output 06/10/18 06/11/18 06/11/18 18:59 06:59 18:59 Intake Total 700 120 Balance 700 120 Intake: Oral 700 120 Other: # Voids 2 3 # Bowel Movements 0 Active Medications: Current Medications Acetaminophen (Tylenol) 325 mg PO Q6HR PRN PRN Reason: Pain or Fever >101 Stop: 08/04/18 21:43 Al Hydrox/Mg Hydrox/Simethicone (Maalox) 30 ml PO Q4HR PRN PRN Reason: GI DISTRESS Stop: 08/04/18 21:38 Amlodipine Besylate (Norvasc) 5 mg PO DAILY [facility] Stop: 08/05/18 08:59 Last Admin: 06/11/18 09:53 Dose: 5 mg Aspirin (Ecotrin) 81 mg PO DAILY [facility] Stop: 08/05/18 08:59 Last Admin: 06/11/18 09:53 Dose: 81 mg Atorvastatin Calcium (Lipitor) 40 mg PO HS [facility] Stop: 08/04/18 22:59 Last Admin: 06/10/18 20:55 Dose: 40 mg Bisacodyl (Dulcolax 10 Mg Supp) 10 mg RC DAILY PRN PRN Reason: Constipation Stop: 08/04/18 21:43 Docusate Sodium (Colace) 100 mg PO BID [facility] Stop: 08/05/18 08:59 Last Admin: 06/11/18 09:54 Dose: 100 mg Lorazepam (Ativan) 0.5 mg PO Q6HR PRN; Protocol PRN Reason: Anxiety Stop: 08/04/18 21:43 Last Admin: 06/10/18 10:12 Dose: 0.5 mg Magnesium Hydroxide (Milk Of Magnesia) 30 ml PO HS PRN PRN Reason: Constipation Mirtazapine (Remeron) 7.5 mg PO HS [facility]; Protocol Stop: 08/08/18 20:59 Last Admin: 06/10/18 20:54 Dose: 7.5 mg Multivitamins/Vitamin C (Theragran) 1 tab PO DAILY [facility] Stop: 08/05/18 08:59 Last Admin: 06/11/18 09:54 Dose: 1 tab Zolpidem Tartrate (Ambien) 5 mg PO HS PRN PRN Reason: Insomnia Stop: 08/04/18 21:38 Last Admin: 06/10/18 20:54 Dose: 5 mg General: weak HEENT: NC/AT, PERRLA, EOMI Neck: Supple, No JVD Lungs: rales Cardiovascular: RRR, Normal S1, Normal S2, with murmur Abdomen: soft, non-tender, non-distended, positive bowel sound Extremities: excoriation, contracture Neurological: no change Internal Medicine Assmt/Plan - Assessment Assessment: ASSESSMENT : History of stroke with right-sided generalized weakness, hypertension, hypercholesterolemia and psych disorder, leukocytosis, anemia, low albumin. - Plan Plan: PLAN: Continue the patient also on aspirin. We will titrate the patient's antihypertensive medication. Continue multivitamins. We will monitor for any signs of infection. We will continue to monitor the patient closely with you. Nutritional Asmnt/Malnutr-PDOC - Dietary Evaluation Malnutrition Findings (Please click <Entered> for more info): Nutritional Asmnt/Malnutrition Start: 06/10/18 09: 26 Text: Status: Complete Freq: Protocol: Document 06/10/18 09:27 MIRANDA (Rec: 06/10/18 09:31 MIRANDA PHILIPPE- [email or web address]) Nutritional Asmnt/Malnutrition Patient General Information Diagnosis Psychosis nos Pertinent Medical Hx/Surgical Hx HTN, hypercholesterolemia, psych d/o Subjective Information Pt asleep at time of visit and did not wake to RD greeting Current Diet Order/ Nutrition Support Mechanical soft Pertinent Medications maalox, lipitor, bisacodyl, colace, MOM, remeron, theragran Pertinent Labs 06/05: Na 142, K 4.0, Cl 109, CO2 23.7, BUN 18, Cr 0.7, glucose 99 Nutritional Hx/Data Height 1.63 m Height (Calculated Centimeters) 162.6 Current Weight (lbs) 47.627 kg Weight (Calculated Kilograms) 47.6 Weight (Calculated Grams) 76832.2 Body Mass Index (BMI) 18.0 Weight Status Underweight GI Symptoms GI Symptoms None Last BM none noted 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 Problem Problem No nutrition diagnosis at this time Intervention/Recommendation Comments Recommend continuing Regular mechanical soft diet Expected Outcomes/Goals Expected Outcomes/Goals Maintain current weight
[2018-06-11] MEDS: Docusate Sodium 100 mg/10 mL UD PO SCH (16:07)
--- NOTE | 2018-06-12 03:22 | Progress Notes ---
DATE: 06/11/2018 PSYCHIATRIC PROGRESS NOTE PROGRESS ON THE UNIT: Staff was spoken to. The patient is interviewed. Mood is noted to be irritable. Affect is constricted. Insight and judgment are noted to be still impaired. Impulse control seems to be improving. The patient continues to be isolative and withdrawn. Sleep and appetite are noted to be poor at this time. ASSESSMENT: The patient is still depressed. PLAN: To continue the patient with Remeron and followup. JOB# [id number]
[2018-06-12] MEDS: Multivitamin Tab PO SCH (09:03)
[2018-06-12] MEDS: Aspirin 81mg Chewable Tab PO SCH (09:03)
[2018-06-12] MEDS: Docusate Sodium 100 mg/10 mL UD PO SCH ×2 (09:03→16:38)
--- NOTE | 2018-06-12 12:12 | Internal Medicine Prog Note ---
Internal Medicine Subjective - Subjective Patient seen and examined:: with staff, chart reviewed Patient is:: asleep, eyes closed, arousable, in bed, confused Per staff patient has:: no adverse event, no episodes of fall, poor appetite, agitated Internal Medicine Objective - Results Result Diagrams: 06/05/18 19:45 06/05/18 19:45 Recent Labs: Laboratory Last Values WBC 12.8 Th/cmm (4.8-10.8) H 06/05/18 19:45 RBC 3.97 Mil/cmm (3.80-5.20) 06/05/18 19:45 Hgb 11.7 gm/dL (12-16) L 06/05/18 19:45 Hct 35.1 % (41.0-60) L 06/05/18 19:45 MCV 88.5 fl (81-100) 06/05/18 19:45 MCH 29.4 pg (27.0-31.0) 06/05/18 19:45 MCHC Differential 33.2 pg (28.0-36.0) 06/05/18 19:45 RDW 12.5 % (11.5-20.0) 06/05/18 19:45 Plt Count 222 Th/cmm (150-400) 06/05/18 19:45 MPV 11.4 fl 06/05/18 19:45 Neutrophils % 72.4 % (40.0-80.0) 06/05/18 19:45 Lymphocytes % 21.3 % (20.0-50.0) 06/05/18 19:45 Monocytes % 5.1 % (2.0-10.0) 06/05/18 19:45 Eosinophils % 1.2 % (0.0-5.0) 06/05/18 19:45 Basophils % 0.0 % (0.0-2.0) 06/05/18 19:45 Sodium 142 mEq/L (136-145) 06/05/18 19:45 Potassium 4.0 mEq/L (3.5-5.1) 06/05/18 19:45 Chloride 109 mEq/L (98-107) H 06/05/18 19:45 Carbon Dioxide 23.7 mEq/L (21.0-31.0) 06/05/18 19:45 Anion Gap 13.3 (7.0-16.0) 06/05/18 19:45 BUN 18 mg/dL (7-25) 06/05/18 19:45 Creatinine 0.7 mg/dL (0.6-1.2) 06/05/18 19:45 Est GFR ( Amer) TNP 06/05/18 19:45 Est GFR (Non-Af Amer) TNP 06/05/18 19:45 BUN/Creatinine Ratio 25.7 06/05/18 19:45 Glucose 99 mg/dL (70-105) 06/05/18 19:45 Calcium 9.0 mg/dL (8.6-10.3) 06/05/18 19:45 Total Bilirubin 0.3 mg/dL (0.3-1.0) 06/05/18 19:45 AST 12 U/L (13-39) L 06/05/18 19:45 ALT 6 U/L (7-52) L 06/05/18 19:45 Alkaline Phosphatase 55 U/L (34-104) 06/05/18 19:45 Total Protein 7.0 gm/dL (6.0-8.3) 06/05/18 19:45 Albumin 3.5 gm/dL (3.7-5.3) L 06/05/18 19:45 Globulin 3.5 gm/dL 06/05/18 19:45 Albumin/Globulin Ratio 1.0 (1.0-1.8) 06/05/18 19:45 Triglycerides 67 mg/dL (<150) 06/05/18 19:35 Cholesterol 161 mg/dL (<200) 06/05/18 19:35 LDL Cholesterol Direct 80 mg/dL (75-193) 06/05/18 19:35 HDL Cholesterol 61 mg/dL (23-92) 06/05/18 19:35 - Physical Exam Vitals and I&O: Vital Signs Temp 98.8 F 06/11/18 16:40 Pulse 87 06/11/18 16:40 Resp 18 06/11/18 16:40 BP 116/66 06/11/18 16:40 Pulse Ox 94 06/11/18 16:40 Intake & Output 06/11/18 06/12/18 06/12/18 18:59 06:59 18:59 Other: # Voids 3 Active Medications: Current Medications Acetaminophen (Tylenol) 325 mg PO Q6HR PRN PRN Reason: Pain or Fever >101 Stop: 08/04/18 21:43 Al Hydrox/Mg Hydrox/Simethicone (Maalox) 30 ml PO Q4HR PRN PRN Reason: GI DISTRESS Stop: 08/04/18 21:38 Amlodipine Besylate (Norvasc) 5 mg PO DAILY TOÑITO Stop: 08/05/18 08:59 Last Admin: 06/12/18 09:04 Dose: Not Given Aspirin (Aspirin Chewable) 81 mg PO DAILY [facility]ÑITO Stop: 08/11/18 08:59 Last Admin: 06/12/18 09:03 Dose: 81 mg Atorvastatin Calcium (Lipitor) 40 mg PO HS [facility] Stop: 08/04/18 22:59 Last Admin: 06/11/18 20:56 Dose: 40 mg Bisacodyl (Dulcolax 10 Mg Supp) 10 mg RC DAILY PRN PRN Reason: Constipation Stop: 08/04/18 21:43 Docusate Sodium (Colace) 100 mg PO BID [facility] Stop: 08/10/18 16:59 Last Admin: 06/12/18 09:03 Dose: 100 mg Lorazepam (Ativan) 0.5 mg PO Q6HR PRN; Protocol PRN Reason: Anxiety Stop: 08/04/18 21:43 Last Admin: 06/10/18 10:12 Dose: 0.5 mg Magnesium Hydroxide (Milk Of Magnesia) 30 ml PO HS PRN PRN Reason: Constipation Mirtazapine (Remeron) 7.5 mg PO HS [facility]; Protocol Stop: 08/08/18 20:59 Last Admin: 06/11/18 20:56 Dose: 7.5 mg Multivitamins/Vitamin C (Theragran) 1 tab PO DAILY [facility]O Stop: 08/05/18 08:59 Last Admin: 06/12/18 09:03 Dose: 1 tab Zolpidem Tartrate (Ambien) 5 mg PO HS PRN PRN Reason: Insomnia Stop: 08/04/18 21:38 Last Admin: 06/11/18 20:56 Dose: 5 mg General: weak HEENT: NC/AT, PERRLA, EOMI Neck: Supple, No JVD Lungs: rales Cardiovascular: RRR, Normal S1, Normal S2, with murmur Abdomen: soft, non-tender, non-distended, positive bowel sound Extremities: excoriation, contracture Neurological: no change Internal Medicine Assmt/Plan - Assessment Assessment: ASSESSMENT : History of stroke with right-sided generalized weakness, hypertension, hypercholesterolemia and psych disorder, leukocytosis, anemia, low albumin. - Plan Plan: PLAN: Continue the patient also on aspirin. We will titrate the patient's antihypertensive medication. Continue multivitamins. We will monitor for any signs of infection. We will continue to monitor the patient closely with you. Nutritional Asmnt/Malnutr-PDOC - Dietary Evaluation Malnutrition Findings (Please click <Entered> for more info): Nutritional Asmnt/Malnutrition Start: 06/10/18 09: 26 Text: Status: Complete Freq: Protocol: Document 06/10/18 09:27 MIRANDA (Rec: 06/10/18 09:31 MIRANDA PAEZ- [email or web address]) Nutritional Asmnt/Malnutrition Patient General Information Diagnosis Psychosis nos Pertinent Medical Hx/Surgical Hx HTN, hypercholesterolemia, psych d/o Subjective Information Pt asleep at time of visit and did not wake to RD greeting Current Diet Order/ Nutrition Support Mechanical soft Pertinent Medications maalox, lipitor, bisacodyl, colace, MOM, remeron, theragran Pertinent Labs 06/05: Na 142, K 4.0, Cl 109, CO2 23.7, BUN 18, Cr 0.7, glucose 99 Nutritional Hx/Data Height 1.63 m Height (Calculated Centimeters) 162.6 Current Weight (lbs) 47.627 kg Weight (Calculated Kilograms) 47.6 Weight (Calculated Grams) 12819.2 Body Mass Index (BMI) 18.0 Weight Status Underweight GI Symptoms GI Symptoms None Last BM none noted 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 Problem Problem No nutrition diagnosis at this time Intervention/Recommendation Comments Recommend continuing Regular mechanical soft diet Expected Outcomes/Goals Expected Outcomes/Goals Maintain current weight
--- NOTE | 2018-06-13 02:00 | Progress Notes ---
DATE: 06/12/2018 PSYCHOLOGY PROGRESS NOTE SUBJECTIVE: The patient is seen and is interviewed. Case is discussed with staff. The patient presents as guarded and easily irritated. The staff reports the patient has been less demanding. However, the patient has been isolative, withdrawn, and is not participating in the milieu of therapy. OBJECTIVE: Mood is irritable. Affect is constricted. Thought process shows to be confused. The patient denied any hallucinations or delusions. The patient's behavior is withdrawn. ASSESSMENT AND PLAN: The patient continues to be depressed. We provided coping strategies for phase of life issues. We provided remotivation for the patient to become compliant and stay compliant with her care and treatment. We provided reflective listening and insight oriented therapy to assist the patient in decreasing her depression. We will continue the present treatment and followup in 2 days. JOB# [id number] MTDD
--- NOTE | 2018-06-13 03:45 | Progress Notes ---
DATE: 06/12/2018 SUBJECTIVE: Staff was spoken to. The patient is interviewed. Mood is noted to be depressed. Affect is constricted. Insight and judgment at this time are noted to be still impaired. Impulse control is noted to be limited. Coping skills are noted to be limited. The patient is still depressed. The patient's sleep and appetite are noted to be improving. The patient has been able to tolerate the Remeron. Self-abusive behavior is being closely monitored at this moment. ASSESSMENT: The patient is still impulsive and self-abusive. PLAN: To continue the patient with the current medications. I encouraged the patient to verbalize the concerns rather than to act out. JOB# [id number]
[2018-06-13] MEDS: Multivitamin Tab PO SCH (09:27)
[2018-06-13] MEDS: Aspirin 81mg Chewable Tab PO SCH (09:27)
[2018-06-13] MEDS: Docusate Sodium 100 mg/10 mL UD PO SCH ×2 (09:27→16:53)
--- NOTE | 2018-06-13 11:56 | Internal Medicine Prog Note ---
Internal Medicine Subjective - Subjective Patient seen and examined:: with staff, chart reviewed Patient is:: asleep, eyes closed, arousable, in bed, confused Per staff patient has:: no adverse event, no episodes of fall, poor appetite, agitated Internal Medicine Objective - Results Result Diagrams: 06/05/18 19:45 06/05/18 19:45 Recent Labs: Laboratory Last Values WBC 12.8 Th/cmm (4.8-10.8) H 06/05/18 19:45 RBC 3.97 Mil/cmm (3.80-5.20) 06/05/18 19:45 Hgb 11.7 gm/dL (12-16) L 06/05/18 19:45 Hct 35.1 % (41.0-60) L 06/05/18 19:45 MCV 88.5 fl (81-100) 06/05/18 19:45 MCH 29.4 pg (27.0-31.0) 06/05/18 19:45 MCHC Differential 33.2 pg (28.0-36.0) 06/05/18 19:45 RDW 12.5 % (11.5-20.0) 06/05/18 19:45 Plt Count 222 Th/cmm (150-400) 06/05/18 19:45 MPV 11.4 fl 06/05/18 19:45 Neutrophils % 72.4 % (40.0-80.0) 06/05/18 19:45 Lymphocytes % 21.3 % (20.0-50.0) 06/05/18 19:45 Monocytes % 5.1 % (2.0-10.0) 06/05/18 19:45 Eosinophils % 1.2 % (0.0-5.0) 06/05/18 19:45 Basophils % 0.0 % (0.0-2.0) 06/05/18 19:45 Sodium 142 mEq/L (136-145) 06/05/18 19:45 Potassium 4.0 mEq/L (3.5-5.1) 06/05/18 19:45 Chloride 109 mEq/L (98-107) H 06/05/18 19:45 Carbon Dioxide 23.7 mEq/L (21.0-31.0) 06/05/18 19:45 Anion Gap 13.3 (7.0-16.0) 06/05/18 19:45 BUN 18 mg/dL (7-25) 06/05/18 19:45 Creatinine 0.7 mg/dL (0.6-1.2) 06/05/18 19:45 Est GFR ( Amer) TNP 06/05/18 19:45 Est GFR (Non-Af Amer) TNP 06/05/18 19:45 BUN/Creatinine Ratio 25.7 06/05/18 19:45 Glucose 99 mg/dL (70-105) 06/05/18 19:45 Calcium 9.0 mg/dL (8.6-10.3) 06/05/18 19:45 Total Bilirubin 0.3 mg/dL (0.3-1.0) 06/05/18 19:45 AST 12 U/L (13-39) L 06/05/18 19:45 ALT 6 U/L (7-52) L 06/05/18 19:45 Alkaline Phosphatase 55 U/L (34-104) 06/05/18 19:45 Total Protein 7.0 gm/dL (6.0-8.3) 06/05/18 19:45 Albumin 3.5 gm/dL (3.7-5.3) L 06/05/18 19:45 Globulin 3.5 gm/dL 06/05/18 19:45 Albumin/Globulin Ratio 1.0 (1.0-1.8) 06/05/18 19:45 Triglycerides 67 mg/dL (<150) 06/05/18 19:35 Cholesterol 161 mg/dL (<200) 06/05/18 19:35 LDL Cholesterol Direct 80 mg/dL (75-193) 06/05/18 19:35 HDL Cholesterol 61 mg/dL (23-92) 06/05/18 19:35 - Physical Exam Vitals and I&O: Vital Signs Temp 97.4 F 06/13/18 06:27 Pulse 70 06/13/18 09:27 Resp 18 06/13/18 08:00 BP 112/72 06/13/18 09:27 Pulse Ox 98 06/13/18 06:27 Intake & Output 06/12/18 06/13/18 06/13/18 18:59 06:59 18:59 Intake Total 800 120 Balance 800 120 Intake: Oral 800 120 Other: # Voids 3 2 # Bowel Movements 0 0 Active Medications: Current Medications Acetaminophen (Tylenol) 325 mg PO Q6HR PRN PRN Reason: Pain or Fever >101 Stop: 08/04/18 21:43 Al Hydrox/Mg Hydrox/Simethicone (Maalox) 30 ml PO Q4HR PRN PRN Reason: GI DISTRESS Stop: 08/04/18 21:38 Amlodipine Besylate (Norvasc) 5 mg PO DAILY [facility] Stop: 08/05/18 08:59 Last Admin: 06/13/18 09:27 Dose: 5 mg Aspirin (Aspirin Chewable) 81 mg PO DAILY [facility] Stop: 08/11/18 08:59 Last Admin: 06/13/18 09:27 Dose: 81 mg Atorvastatin Calcium (Lipitor) [address] [facility] Stop: 08/04/18 22:59 Last Admin: 06/12/18 21:34 Dose: 40 mg Bisacodyl (Dulcolax 10 Mg Supp) 10 mg RC DAILY PRN PRN Reason: Constipation Stop: 08/04/18 21:43 Docusate Sodium (Colace) 100 mg PO BID [facility] Stop: 08/10/18 16:59 Last Admin: 06/13/18 09:27 Dose: 100 mg Lorazepam (Ativan) 0.5 mg PO Q6HR PRN; Protocol PRN Reason: Anxiety Stop: 08/04/18 21:43 Last Admin: 06/10/18 10:12 Dose: 0.5 mg Magnesium Hydroxide (Milk Of Magnesia) 30 ml PO HS PRN PRN Reason: Constipation Mirtazapine (Remeron) 7.5 mg PO HS [facility]; Protocol Stop: 08/08/18 20:59 Last Admin: 06/12/18 21:34 Dose: 7.5 mg Multivitamins/Vitamin C (Theragran) 1 tab PO DAILY [facility] Stop: 08/05/18 08:59 Last Admin: 06/13/18 09:27 Dose: 1 tab Zolpidem Tartrate (Ambien) 5 mg PO HS PRN PRN Reason: Insomnia Stop: 08/04/18 21:38 Last Admin: 06/12/18 21:34 Dose: 5 mg General: weak HEENT: NC/AT, PERRLA, EOMI Neck: Supple, No JVD Lungs: rales Cardiovascular: RRR, Normal S1, Normal S2, with murmur Abdomen: soft, non-tender, non-distended, positive bowel sound Extremities: excoriation, contracture Neurological: no change Internal Medicine Assmt/Plan - Assessment Assessment: ASSESSMENT : History of stroke with right-sided generalized weakness, hypertension, hypercholesterolemia and psych disorder, leukocytosis, anemia, low albumin. - Plan Plan: PLAN: Continue the patient also on aspirin. We will titrate the patient's antihypertensive medication. Continue multivitamins. We will monitor for any signs of infection. We will continue to monitor the patient closely with you. Nutritional Asmnt/Malnutr-PDOC - Dietary Evaluation Malnutrition Findings (Please click <Entered> for more info): Nutritional Asmnt/Malnutrition Start: 06/10/18 09: 26 Text: Status: Complete Freq: Protocol: Document 06/10/18 09:27 MIRANDA (Rec: 06/10/18 09:31 MIRANDA PHILIPPE- [email or web address]) Nutritional Asmnt/Malnutrition Patient General Information Diagnosis Psychosis nos Pertinent Medical Hx/Surgical Hx HTN, hypercholesterolemia, psych d/o Subjective Information Pt asleep at time of visit and did not wake to RD greeting Current Diet Order/ Nutrition Support Mechanical soft Pertinent Medications maalox, lipitor, bisacodyl, colace, MOM, remeron, theragran Pertinent Labs 06/05: Na 142, K 4.0, Cl 109, CO2 23.7, BUN 18, Cr 0.7, glucose 99 Nutritional Hx/Data Height 1.63 m Height (Calculated Centimeters) 162.6 Current Weight (lbs) 47.627 kg Weight (Calculated Kilograms) 47.6 Weight (Calculated Grams) 50768.2 Body Mass Index (BMI) 18.0 Weight Status Underweight GI Symptoms GI Symptoms None Last BM none noted Cultural/Ethnic/Ad[employer]ist Belief unknown Usual diet at home mechanical soft Skin Integrity/Comment: corina score 13 Current %PO Poor (25-49%) Estimated Nutritional Goals BEE in Kcals: Using Current wt Calories/Kcals/Kg 25+kcals/kg Kcals Calculated 1200kcals/day Protein: Using Current wt Protein g/kg: ~1g/kg Protein Calculated ~48g/day Fluid: ml 1200ml/day (1ml/kcal) Nutritional Problem 1. Problem Problem No nutrition diagnosis at this time Intervention/Recommendation Comments Recommend continuing Regular mechanical soft diet Expected Outcomes/Goals Expected Outcomes/Goals Maintain current weight
--- NOTE | 2018-06-13 21:14 | Discharge Summary ---
DATE OF DISCHARGE: 06/13/2018 IDENTIFYING DATA: The patient is an 87-year-old woman, resident of [facility]. JUSTIFICATION OF HOSPITALIZATION: The patient is admitted on a voluntary basis in view of her acute agitation and self-abusive behavior. 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 AXIS II: None. AXIS III: As per Dr. Mejia. HISTORY OF PRESENT ILLNESS: Please refer to the 06/06/2018 dictation done by me. HOSPITAL COURSE AND RESPONSE TO TREATMENT: The patient has been observed on inpatient unit, provided with supportive psychotherapy. The patient has been started on Remeron that was given 7.5 mg at bedtime. The patient has been closely monitored. The patient has been encouraged to participate in the groups and verbalize the concerns. The patient's impulsivity started to improve. The patient's self-abusive behavior started to resolve and hence the patient was discharged on 06/13/2018 with recommendation that he is going to be seeking treatment on an outpatient basis. MENTAL STATUS EXAMINATION AT THE TIME OF DISCHARGE: The patient was to be less irritable. Affect is appropriate. The patient denies any active hallucinations. No delusions are noted. Coping skills are noted to be fair, but the patient has both short and long-term memory deficits. AFTERCARE PLAN: The [facility] is [facility] to the [facility] for further followup. JOB# [id number]
== END 2018-06-13 18:50 | DRG 881 ==
LOC: ER 19:09 → GERO 20:52
DX: F32.9 Major depressive disorder, single episode, unspecified (principal); F29 Unspecified psychosis not due to a substance or known physiological condition; F03.90 Unspecified dementia, unspecified severity, without behavioral disturbance, psychotic disturbance, mood disturbance, and anxiety; E78.00 Pure hypercholesterolemia, unspecified; F41.9 Anxiety disorder, unspecified; I10 Essential (primary) hypertension; Z88.2 Allergy status to sulfonamides; Z86.73 Personal history of transient ischemic attack (TIA), and cerebral infarction without residual deficits; I25.10 Atherosclerotic heart disease of native coronary artery without angina pectoris; D64.9 Anemia, unspecified; D72.829 Elevated white blood cell count, unspecified
CPT/HCPCS: 36415-UA; 80053-TC; 80061-TC; 83036-90; 85025-TC; Z7610